=== PATIENT | female | born 1985 | race Caucasian/White ===

== ENCOUNTER 2020-05-30 12:53 | Inpatient (IN) | payer MEDICAID ==
[2020-05-30] MEDS ORDERED: Ondansetron 4 MG/2 ML SDV IVPUSH PRN (13:08)
[2020-05-30] MEDS ORDERED: Lidocaine 1% 50 ML MDV INJECT ONE (13:08)
[2020-05-30] MEDS ORDERED: Sodium Chloride 0.9% 10 ML Syringe FLUSH PRN (13:08)
[2020-05-30] MEDS ORDERED: Calcium Carbonate 500 MG Tab.Chew PO PRN (13:08)
[2020-05-30] MEDS ORDERED: Nalbuphine 10 MG/1 ML Vial IVPUSH PRN (13:08)
[2020-05-30] MEDS ORDERED: Oxytocin/Lactated Ringers 10 UNIT/1,000 ML BAG IV SCH ×2 (13:15)
[2020-05-30] MEDS ORDERED: Ampicillin 2 GM in Sodium Chloride 0.9% 100 ML IV ONE (13:30)
[2020-05-30] MEDS: Lactated Ringers 1,000 ML IV SCH ×2 (14:10→21:52)
[2020-05-30] MEDS: Ampicillin 1 GM in Sodium Chloride 0.9% 100 ML IV SCH ×2 (17:29→21:51)
--- NOTE | 2020-05-30 18:30 | PCM.LDHP ---
L&D History of Present Illness - General Date of Service: 05/30/20 Admit Problem/Dx: Patient Status Order with Admit Dx/Problem 05/30/20 13:09 Patient Status [ADT] Routine Admission Diagnosis/Problem Admission Diagnosis/Problem Term 05/30/20 18:21 Era is a 35-year-old 7 para 5-0-1-5 female who was admitted at midday on 05/30/2020 a 9-6/7 weeks gestational age with an RUT of 05/31/2020 for induction of labor. Source of Information: Patient History Limitations: Reports: No Limitations - History of Present Illness Introduction:: Era is a 35-year-old 7 para 5-0-1-5 female who was admitted at midday on 05/30/2020 a 9-6/7 weeks gestational age with an RUT of 05/31/2020 for induction of labor. The procedure, risk, benefits, alternatives of care including allowing for natural onset of labor are all discussed with her and her Francisco. They appear to understand and wish to proceed. [employer]E [employer]INE [employer] history: Era is a 7 para 5-0-1-5. Her due date of 05/31/2020 is set by an LMP which is relatively certain and started on 08/25/2019. Her last menstrual period was definite. She is not using any control at the time of conception. Cycles come q. 30 days. They last approximately 5 to 7 days. She has no history of abnormal Pap smears or STIs. Previous obstetric history includes 5 vaginal deliveries ranging in the 8 pound 8 ounce range to the 9 pound 4 ounce range. 2 of these deliveries were home deliveries and 3 of them were at [facility]. course: Patient was initially seen at 12 weeks gestational age. She was seen on a reasonably regular basis. Weight gain was from 205 to 220 pounds for 15 pound increase. Her vital signs remained stable throughout the and her fundal height growth was appropriate. She is group B strep positive and is a candidate for ampicillin in labor and delivery. Patient is interested in definitive therapy to achieve hysterectomy after this delivery. She plans to breast-feed. Her MMR indicates she is rubella immune. Laboratory testing shows blood to be all positive. First labs show an antibody screen which is negative. Hemoglobin at first annual visit was 13.6 g/dL and platelets were 297,000. She is rubella immune. RPR is nonreactive. Urine culture showed group B strep presence. Hepatitis B surface antigen was negative. HIV assay was negative. Chlamydia and gonorrhea tests were both negative. Her 1 hour GTT was normal at 127. Follow-up hemoglobin on 04/13/2020 was 12.6 and platelets were 215,000. Group B strep was positive on urine culture and was not repeated at the end of the . Allergies: Minocycline HCL tabs which cause itching Medications: 1. Vitamin D tabs 2. Vitamin C tabs 3. vitamins daily 4. B complex oral tablets 5. Calcium, zinc, magnesium and vitamin D tablets daily Past medical history: 1. x5 2. Spontaneous miscarriage x1 Past surgical history: 1. Tonsillectomy 2. [place] teeth extraction Family history: Mother is alive, is diabetic, has neuropathy, has Graves' disease. Father is alive but has high blood pressure. 1 brother 1 sister alive and well. Paternal grandfather secondary to malignant melanoma. Paternal grandmother is secondary to CHF.. Maternal grandmother is alive and diabetic. Maternal grandfather is alive. Health history is unknown. 1 sister has had a miscarriage. Social history: Patient is . She lives in [place], [place]. She is a homemaker. Her name is Francisco. She does not use any significant muscle alcohol, drugs or tobacco. Review of systems: In general patient has no complaints. Baby has been active. Occasional contractions are noted. Skin: Negative Lungs: No infectious symptoms or shortness of breath Cardiovascular: No chest pain or exercise intolerance Breasts: No lumps, changes in size, pain, dimpling, discharge or axillary or supraclavicular concerns. GI: Negative : Changes associated noted. Musculoskeletal: Negative Neurological: Negative Physical exam: In general the patient is well-developed, well-nourished, pleasant female of stated age in no acute distress. Last evaluation clinic blood pressure 108/68. Weight was 220 pounds with a pregravid weight of 205 pounds. Her heart rate was 136 bpm. Fundal height was 39 cm. Skin is warm dry without lesions. HEENT, neck and back within normal limits. Lungs are clear with good breath sounds in all lung santiago. Cardiovascular exam shows regular and rhythm without murmurs. Breast exam at first annual visit was within normal limits. Is not repeated at this time. Abdomen is is gravid with last fundal height clinic at 39 cm with baby in vertex presentation.. Genital per digital exam on last evaluation clinic shows cervix to be 2 cm, 40% effaced, mid position, soft, -3 station.. Extremities and neurological exam are grossly within normal limits. - Related Data Allergies/Adverse Reactions: Allergies Allergy/AdvReac Type Severity Reaction Status Date / Time minocycline Allergy Itching Verified 02/19/18 12:50 Past Medical History [employer]E [employer] History: Reports: - Past Surgical History HEENT Surgical History: Reports: Oral Surgery, Tonsillectomy Social & Family History - Family History Family Medical History: No Pertinent Family History Oncologic: Reports: Bone Other Oncologic Family History: son dx with cancer - Tobacco Use Tobacco Use Status *Q: Never Tobacco User Second Hand Smoke Exposure: No - Recreational Drug Use Recreational Drug Use: No H&P Review of Systems - Review of Systems: Review Of Systems: See Below L&D Exam - Exam Exam: See Below - Vital Signs Vital Signs: Last Vital Signs Temp 36.9 C 05/30/20 13:08 Pulse 79 05/30/20 16:02 Resp 14 05/30/20 13:08 BP 116/74 05/30/20 16:02 Pulse Ox 98 05/30/20 13:08 Weight: 102.058 kg - Patient Data Lab Results Last 24 hrs: Laboratory Results - last 24 hr 05/30/20 05/30/20 Range/Units 13:15 13:40 WBC 6.85 (3.98-10.04) K/mm3 RBC 4.16 (3.98-5.22) M/mm3 Hgb 12.4 (11.2-15.7) gm/dl Hct 36.4 (34.1-44.9) % MCV 87.5 (79.4-94.8) fl MCH 29.8 (25.6-32.2) pg MCHC 34.1 (32.2-35.5) g/dl RDW Std Deviation 44.0 (36.4-46.3) fL Plt Count 195 (182-369) K/mm3 MPV 10.3 (9.4-12.3) fl Neut % (Auto) 63.2 (34.0-71.1) % Lymph % (Auto) 29.2 (19.3-51.7) % [place] % (Auto) 6.9 (4.7-12.5) % Eos % (Auto) 0.3 L (0.7-5.8) Baso % (Auto) 0.3 (0.1-1.2) % Neut # (Auto) 4.33 (1.56-6.13) K/mm3 Lymph # (Auto) 2.00 (1.18-3.74) K/mm3 [place] # (Auto) 0.47 H (0.24-0.36) K/mm3 Eos # (Auto) 0.02 L (0.04-0.36) K/mm3 Baso # (Auto) 0.02 (0.01-0.08) K/mm3 SARS-CoV-2 RNA (REECE) Negative (NEGATIVE) Result Diagrams: 05/30/20 13:40 Problem List Initiated/Reviewed/Updated: Yes Orders Last 24hrs: Active Orders 24 hr Category Date Time Status Patient Status [ADT] Routine ADT 05/30/20 13:09 Active Activity as Tolerated [RC] PFP Care 05/30/20 13:08 Active Antiembolic Devices [RC] PER UNIT ROUTINE Care 05/30/20 13:12 Active Communication Order [RC] ASDIRECTED Care 05/30/20 13:08 Active Communication Order [RC] ASDIRECTED Care 05/30/20 13:08 Active Communication Order [RC] ASDIRECTED Care 05/30/20 13:08 Active Communication Order [RC] ASDIRECTED Care 05/30/20 13:08 Active Notify Provider [RC] ASDIRECTED Care 05/30/20 13:08 Active Notify Provider [RC] PFP Care 05/30/20 13:08 Active Notify Provider [RC] PRN Care 05/30/20 13:08 Active Urinary Catheter Assessment [RC] ASDIRECTED Care 05/30/20 13:08 Active Vital Signs [RC] 09,15,21,03 Care 05/30/20 13:08 Active Regular Diet [DIET] Diet 05/30/20 Lunch Active BLOOD BANK HOLD SPECIMEN [BBK] Stat Lab 05/30/20 13:08 Ordered RAPID PLASMA REAGIN,RPR [CHEM] Stat Lab 05/30/20 13:40 Received Ampicillin 1 gm Med 05/30/20 17:30 Active Sodium Chloride 0.9% [Normal Saline] 100 ml IV Q4H Calcium Carbonate [Tums] Med 05/30/20 13:08 Active 1,000 mg PO Q2H PRN Lactated Ringers [Ringers, Lactated] 1,000 ml Med 05/30/20 13:15 Active IV ASDIRECTED Nalbuphine [Nubain] Med 05/30/20 13:08 Active 10 mg IVPUSH Q2H PRN Ondansetron [Zofran] Med 05/30/20 13:08 Active 4 mg IVPUSH Q4H PRN Oxytocin/Lactated Ringers [Pitocin in LR 10 Units/1,000 Med 05/30/20 13:15 Active ML] 10 unit in 1,000 ml IV .CONTINUOUS Oxytocin/Lactated Ringers [Pitocin in LR 10 Units/1,000 Med 05/30/20 13:15 Active ML] 10 unit in 1,000 ml IV TITRATE Sodium Chloride 0.9% [Saline Flush] Med 05/30/20 13:08 Active 10 ml FLUSH ASDIRECTED PRN Electronic Heart Tones Ext w TOCO [WOMSER] Oth 05/30/20 13:08 Ordered Routine Electronic Heart Tones Internal [WOMSER] Per Unit Oth 05/30/20 13:08 Ordered Routine Peripheral IV Insertion Adult [OM.PC] Routine Oth 05/30/20 13:08 Ordered Sequential Compression Device [OM.PC] Routine Oth 05/30/20 13:08 Ordered Resuscitation Status Routine Resus Stat 05/30/20 13:08 Ordered Medication Orders Calcium Carbonate/Glycine (Tums) 1,000 mg PO Q2H PRN PRN Reason: Indigestion Lactated Ringer's (Ringers, Lactated) 1,000 mls @ 100 mls/hr IV ASDIRECTED JULIA Last Admin: 05/30/20 14:10 Dose: 100 mls/hr Documented by: ALEXI Oxytocin/Lactated Ringer's (Pitocin In Lr 10 Units/1,000 Ml) 10 unit in 1,000 mls @ 12 mls/hr IV TITRATE JULIA; Protocol Last Titration: 05/30/20 17:33 Dose: 16 munits/min, 96 mls/hr Documented by: KATHIABMJAMEEL Titration: 05/30/20 17:12 Dose: 14 munits/min, 84 mls/hr Documented by: KATHIABMJAMEEL Titration: 05/30/20 16:44 Dose: 12 munits/min, 72 mls/hr Documented by: CHARLYLBMJAMEEL Titration: 05/30/20 16:16 Dose: 10 munits/min, 60 mls/hr Documented by: KATHIABMJAMEEL Titration: 05/30/20 16:04 Dose: 8 munits/min, 48 mls/hr Documented by: KATHIABMJAMEEL Titration: 05/30/20 15:31 Dose: 6 munits/min, 36 mls/hr Documented by: KATHIABMJAMEEL Titration: 05/30/20 15:11 Dose: 4 munits/min, 24 mls/hr Documented by: Admin: 05/30/20 14:52 Dose: 2 munits/min, 12 mls/hr Documented by: ALEXI Oxytocin/Lactated Ringer's (Pitocin In Lr 10 Units/1,000 Ml) 10 unit in 1,000 mls @ 500 mls/hr IV .CONTINUOUS JULIA Ampicillin Sodium 1 gm/ Sodium (Chloride) 100 mls @ 200 mls/hr IV Q4H JULIA Last Admin: 05/30/20 17:29 Dose: 200 mls/hr Documented by: ALEXI Nalbuphine HCl (Nubain) 10 mg IVPUSH Q2H PRN PRN Reason: Pain Ondansetron HCl (Zofran) 4 mg IVPUSH Q4H PRN PRN Reason: Nausea/Vomiting Sodium Chloride (Saline Flush) 10 ml FLUSH ASDIRECTED PRN PRN Reason: Keep Vein Open Assessment/Plan Comment:: 1Ricki Girard is a 35-year-old 7 para 5-0-1-5 female who was admitted at midday on 05/30/2020 a 9-6/7 weeks gestational age with an RUT of 05/31/2020 for induction of labor. 2. Group B strep positive status 3. Patient is open to epidural but would like to try natural labor 4. Patient plans to breast-feed 5. Patient is rubella immune. 6. Patient is desiring minimal intervention. She has had 2 home deliveries and has somewhat reluctantly agreed to deliver in the hospital. Plan: 1. Pitocin induction to be followed by AROM augmentation. Anticipate normal spontaneous vaginal delivery 2. Group B strep prophylaxis per protocol with ampicillin 3. Patient understands that epidurals available for her as well as other pain control modalities if she desires. 4. Routine labor care 5. Admission labs consist of Covid19 testing, CBC, RPR. 6. Encourage/support breast-feeding plan
[2020-05-30] MEDS ORDERED: Oxytocin/Lactated Ringers 20 UNIT/1,000 ML BAG IV SCH (20:45)
--- NOTE | 2020-05-31 00:02 | PCM.SN.2 ---
- Free Text/Narrative Note: Era is a 35-year-old 7 para 5-0-1-5 female who was admitted at midday on 05/30/2020 a 9-6/7 weeks gestational age with an RUT of 05/31/2020 for induction of labor. Labor was initiated with Pitocin as baby's head was at a -3 station and not well engaged with the cervix. After several hours of Pitocin artificial rupture membranes was undertaken with resultant clear amniotic fluid. Patient underwent natural labor and no epidural or other analgesia was used. At 2327 hrs. on 05/30/2020 the patient became complete and became very pushy. With a single contraction she delivered a viable, nunez, male infant with Apgars of 8 and 9, a weight of 3690 g (8 pounds 9.2 ounces), a length of 21 inches in a direct occiput anterior position. The baby was placed on mom's abdomen, nose and mouth were bulb suction the baby was dried. Pitocin solution rate was increased to 500 cc/h per protocol to facilitate increase in uterine tone and decrease likelihood of bleeding. Umbilical cord is allowed to pulsate for approximately 2 to 3 minutes. It was then clamped. Patient desired cord blood banking to be done. She had a kit present. Following instructions within the kit cord blood was obtained without problems. The cord was prepped with the prep swab prior to obtaining cord blood. Patient's instructions from the company for their specific sample was that cord tissue sample was not necessary. Therefore cord tissue sample was not obtained. Paternal blood had already been drawn by the lab for the cat. The cat was packed and given to the family by nurse Sawyer. The placenta delivered in a [place] presentation, appeared intact and complete and was discarded per patient desire. There were 3 vessels in the umbilical cord. Cord blood for labor and delivery use was not obtained as no further blood could be drawn from the cord after the cord blood banking sample was obtained. The perineum was intact and no suturing was required. Patient plans to breast- feed. Estimated blood loss was 200 cc. Condition: Good
[2020-05-31] MEDS ORDERED: Docusate Sodium 100 MG Cap PO PRN (00:09)
[2020-05-31] MEDS ORDERED: Benzocaine/Menthol 20%-0.5% Spray 56 GM Canister TOP PRN (00:09)
[2020-05-31] MEDS ORDERED: Witch Hazel Medicated Pads 40/Jar TOP PRN (00:09)
[2020-05-31] MEDS ORDERED: Ibuprofen 600 MG Tab PO PRN (00:09)
[2020-05-31] MEDS ORDERED: Acetaminophen 325 MG Tab PO PRN (00:09)
--- NOTE | 2020-05-31 07:10 | PCM.PNPP ---
- General Info Date of Service: 05/31/20 Functional Status: Reports: Pain Controlled - Review of Systems General: Reports: No Symptoms HEENT: Reports: No Symptoms Pulmonary: Reports: No Symptoms Cardiovascular: Reports: No Symptoms Gastrointestinal: Reports: No Symptoms Genitourinary: Reports: No Symptoms Musculoskeletal: Reports: No Symptoms Skin: Reports: No Symptoms Neurological: Reports: No Symptoms Psychiatric: Reports: No Symptoms - General Info Date of Service: 05/31/20 - Patient Data Vital Signs - Most Recent: Last Vital Signs Temp 37.0 C 05/31/20 05:20 Pulse 77 05/31/20 05:20 Resp 16 05/31/20 05:20 BP 107/64 05/31/20 05:20 Pulse Ox 95 05/31/20 05:20 Weight - Most Recent: 102.058 kg I&O - Last 24 Hours: Intake & Output 05/30/20 05/31/20 05/31/20 22:59 06:59 14:59 Intake Total 0 Balance 0 Lab Results - Last 24 Hours: Laboratory Results - last 24 hr 05/30/20 05/30/20 05/30/20 Range/Units 13:15 13:40 13:40 WBC 6.85 (3.98-10.04) K/mm3 RBC 4.16 (3.98-5.22) M/mm3 Hgb 12.4 (11.2-15.7) gm/dl Hct 36.4 (34.1-44.9) % MCV 87.5 (79.4-94.8) fl MCH 29.8 (25.6-32.2) pg MCHC 34.1 (32.2-35.5) g/dl RDW Std Deviation 44.0 (36.4-46.3) fL Plt Count 195 (182-369) K/mm3 MPV 10.3 (9.4-12.3) fl Neut % (Auto) 63.2 (34.0-71.1) % Lymph % (Auto) 29.2 (19.3-51.7) % [place] % (Auto) 6.9 (4.7-12.5) % Eos % (Auto) 0.3 L (0.7-5.8) Baso % (Auto) 0.3 (0.1-1.2) % Neut # (Auto) 4.33 (1.56-6.13) K/mm3 Lymph # (Auto) 2.00 (1.18-3.74) K/mm3 [place] # (Auto) 0.47 H (0.24-0.36) K/mm3 Eos # (Auto) 0.02 L (0.04-0.36) K/mm3 Baso # (Auto) 0.02 (0.01-0.08) K/mm3 RPR Non-reactive (NONREACTIVE) SARS-CoV-2 RNA (REECE) Negative (NEGATIVE) Med Orders - Current: Current Medications Acetaminophen (Tylenol) 650 mg PO Q4H PRN PRN Reason: mild pain or fever Benzocaine/Menthol (Dermoplast Pain Relief Coats) 0 gm TOP ASDIRECTED PRN PRN Reason: Perineal Comfort Measure Last Admin: 05/31/20 00:27 Dose: 1 can Documented by: Docusate Sodium (Colace) 100 mg PO BID PRN PRN Reason: Constipation Ibuprofen (Motrin) 600 mg PO Q4H PRN PRN Reason: Mild pain or fever Last Admin: 05/31/20 00:26 Dose: 600 mg Documented by: Prenat Multivit/Senior Sales Administrator/Iron/Folic Ac ( Plus Iron) 1 each PO DAILY [facility] Laureano Loera (Tucks) 1 pad TOP ASDIRECTED PRN PRN Reason: Perineal Comfort Measure Last Admin: 05/31/20 00:27 Dose: 1 tub Documented by: Discontinued Medications Calcium Carbonate/Glycine (Tums) 1,000 mg PO Q2H PRN PRN Reason: Indigestion Lactated Ringer's (Ringers, Lactated) 1,000 mls @ 100 mls/hr IV ASDIRECTED JULIA Last Admin: 05/30/20 21:52 Dose: 100 mls/hr Documented by: Oxytocin/Lactated Ringer's (Pitocin In Lr 10 Units/1,000 Ml) 10 unit in 1,000 mls @ 12 mls/hr IV TITRATE JULIA; Protocol Last Titration: 05/30/20 19:35 Dose: 20 munits/min, 120 mls/hr Documented by: Oxytocin/Lactated Ringer's (Pitocin In Lr 10 Units/1,000 Ml) 10 unit in 1,000 mls @ 500 mls/hr IV .CONTINUOUS JULIA Ampicillin Sodium 2 gm/ Sodium (Chloride) 100 mls @ 200 mls/hr IV ONETIME ONE Stop: 05/30/20 13:59 Last Admin: 05/30/20 14:13 Dose: 200 mls/hr Documented by: Ampicillin Sodium 1 gm/ Sodium (Chloride) 100 mls @ 200 mls/hr IV Q4H JULIA Last Admin: 05/30/20 21:51 Dose: 200 mls/hr Documented by: Oxytocin/Lactated Ringer's (Pitocin In Lr 20 Units/1,000 Ml) 20 unit in 1,000 mls @ 66 mls/hr IV TITRATE JULIA; Protocol Last Admin: 05/30/20 20:48 Dose: 66 mls/hr Documented by: Lidocaine HCl (Xylocaine 1%) 20 ml INJECT ONETIME ONE Stop: 05/30/20 13:09 Last Admin: 05/31/20 06:56 Dose: Not Given Documented by: Nalbuphine HCl (Nubain) 10 mg IVPUSH Q2H PRN PRN Reason: Pain Ondansetron HCl (Zofran) 4 mg IVPUSH Q4H PRN PRN Reason: Nausea/Vomiting Sodium Chloride (Saline Flush) 10 ml FLUSH ASDIRECTED PRN PRN Reason: Keep Vein Open - Infant Interaction Support Person: - Recovery Exam Fundal Tone: Firm Fundal Level: 1 Fingerbreadths Below Umbilicus Fundal Placement: Midline Lochia Amount: Small Lochia Color: Rubra/Red - Exam General: Alert, Oriented HEENT: Pupils Equal Neck: Supple Lungs: Clear to Auscultation, Normal Respiratory Effort Cardiovascular: Regular Rate, Regular Rhythm GI/Abdominal Exam: Normal Bowel Sounds, Soft, Non-Tender, No Organomegaly, No Distention, No Abnormal Bruit, No Mass, Pelvis Stable Extremities: Normal Inspection, Normal Range of Motion, Non-Tender, No Pedal Edema, Normal Capillary Refill Skin: Warm, Dry, Intact Wound/Incisions: Healing Well Neurological: No New Focal Deficit Psy/Mental Status: Alert, Normal Affect, Normal Mood - Problem List Review Problem List Initiated/Reviewed/Updated: Yes - Assessment Assessment:: PPD1 Doing well. - Plan Plan:: Home tomorrow
[2020-05-31] MEDS ORDERED: Prenatal Multivitamin with Calcium/Folic Acid/Iron Tab PO SCH (09:00)
--- NOTE | 2020-05-31 17:16 | PCM.DCSUM1 ---
Discharge Summary - Hospital Course Diagnosis: Stroke: No - Discharge Data Discharge Date: 05/31/20 Discharge Disposition: Home, Self-Care 01 Condition: Good - Referral to Home Health Primary Care Physician: Nathan Mendoza MD - Patient Summary/Data Hospital Course: Era is a 35-year-old 7 para 5-0-1-5 female who was admitted at [facility] on 05/30/2020 a 9-6/7 weeks gestational age with an RUT of 05/31/2020 for induction of labor. Labor was initiated with Pitocin as baby's head was at a -3 station and not well engaged with the cervix. After several hours of Pitocin artificial rupture membranes was undertaken with resultant clear amniotic fluid. Patient underwent natural labor and no epidural or other analgesia was used. At 2327 hrs. on 05/30/2020 the patient became complete and became very pushy. With a single contraction she delivered a viable, nunez, male infant with Apgars of 8 and 9, a weight of 3690 g (8 pounds 9.2 ounces), a length of 21 inches in a direct occiput anterior position. The baby was placed on mom's abdomen, nose and mouth were bulb suction the baby was dried. Pitocin solution rate was increased to 500 cc/h per protocol to facilitate increase in uterine tone and decrease likelihood of bleeding. Umbilical cord is allowed to pulsate for approximately 2 to 3 minutes. It was then clamped. Patient desired cord blood banking to be done. She had a kit present. Following instructions within the kit cord blood was obtained without problems. The cord was prepped with the prep swab prior to obtaining cord blood. Patient's instructions from the company for their specific sample was that cord tissue sample was not necessary. Therefore cord tissue sample was not obtained. Paternal blood had already been drawn by the lab for the cat. The cat was packed and given to the family by nurse Sawyer. The placenta delivered in a [place] presentation, appeared intact and complete and was discarded per patient desire. There were 3 vessels in the umbilical cord. Cord blood for labor and delivery use was not obtained as no further blood could be drawn from the cord after the cord blood banking sample was obtained. The perineum was intact and no suturing was required. Patient plans to breast- feed. Estimated blood loss was 200 cc. Condition: Good - Patient Instructions Diet: Usual Diet as Tolerated Activity: No Strenuous Activities Activity, Other: pelvic rest Driving: May Drive Today Showering/Bathing: May Shower Notify Provider of: Fever, Increased Pain, Swelling and Redness, Drainage, Nausea and/or Vomiting - Discharge Plan *PRESCRIPTION DRUG MONITORING PROGRAM REVIEWED*: No *COPY OF PRESCRIPTION DRUG MONITORING REPORT IN PATIENT NIKKI: No Referrals: Nathan Mendoza MD [Primary Care Provider] - (2 weeks) - Discharge Summary/Plan Comment DC Time >30 min.: No - General Info Date of Service: 05/31/20 Functional Status: Reports: Pain Controlled - Review of Systems General: Reports: No Symptoms HEENT: Reports: No Symptoms Pulmonary: Reports: No Symptoms Cardiovascular: Reports: No Symptoms Gastrointestinal: Reports: No Symptoms Genitourinary: Reports: No Symptoms Musculoskeletal: Reports: No Symptoms Skin: Reports: No Symptoms Neurological: Reports: No Symptoms Psychiatric: Reports: No Symptoms - Patient Data Vitals - Most Recent: Last Vital Signs Temp 36.5 C 05/31/20 07:53 Pulse 70 05/31/20 07:53 Resp 18 05/31/20 07:53 BP 114/76 05/31/20 07:53 Pulse Ox 97 05/31/20 07:53 Weight - Most Recent: 102.058 kg I&O - Last 24 hours: Intake & Output 05/31/20 05/31/20 05/31/20 06:59 14:59 22:59 Intake Total 240 Balance 240 Lab Results - Last 24 hrs: Laboratory Results - last 24 hr 05/30/20 Range/Units 13:40 RPR Non-reactive (NONREACTIVE) Med Orders - Current: Current Medications Acetaminophen (Tylenol) 650 mg PO Q4H PRN PRN Reason: mild pain or fever Benzocaine/Menthol (Dermoplast Pain Relief [place]) 0 gm TOP ASDIRECTED PRN PRN Reason: Perineal Comfort Measure Last Admin: 05/31/20 00:27 Dose: 1 can Documented by: Docusate Sodium (Colace) 100 mg PO BID PRN PRN Reason: Constipation Ibuprofen (Motrin) 600 mg PO Q4H PRN PRN Reason: Mild pain or fever Last Admin: 05/31/20 00:26 Dose: 600 mg Documented by: Prenat Multivit/[place]/Iron/Folic Ac ( Plus Iron) 1 each PO DAILY [facility] Laureano [place] (Tucks) 1 pad TOP ASDIRECTED PRN PRN Reason: Perineal Comfort Measure Last Admin: 05/31/20 00:27 Dose: 1 tub Documented by: Discontinued Medications Calcium Carbonate/Glycine (Tums) 1,000 mg PO Q2H PRN PRN Reason: Indigestion Lactated Ringer's (Ringers, Lactated) 1,000 mls @ 100 mls/hr IV ASDIRECTED JULIA Last Admin: 05/30/20 21:52 Dose: 100 mls/hr Documented by: Oxytocin/Lactated Ringer's (Pitocin In Lr 10 Units/1,000 Ml) 10 unit in 1,000 mls @ 12 mls/hr IV TITRATE JULIA; Protocol Last Titration: 05/30/20 19:35 Dose: 20 munits/min, 120 mls/hr Documented by: Oxytocin/Lactated Ringer's (Pitocin In Lr 10 Units/1,000 Ml) 10 unit in 1,000 mls @ 500 mls/hr IV .CONTINUOUS JULIA Ampicillin Sodium 2 gm/ Sodium (Chloride) 100 mls @ 200 mls/hr IV ONETIME ONE Stop: 05/30/20 13:59 Last Admin: 05/30/20 14:13 Dose: 200 mls/hr Documented by: Ampicillin Sodium 1 gm/ Sodium (Chloride) 100 mls @ 200 mls/hr IV Q4H JULIA Last Admin: 05/30/20 21:51 Dose: 200 mls/hr Documented by: Oxytocin/Lactated Ringer's (Pitocin In Lr 20 Units/1,000 Ml) 20 unit in 1,000 mls @ 66 mls/hr IV TITRATE JULIA; Protocol Last Admin: 05/30/20 20:48 Dose: 66 mls/hr Documented by: Lidocaine HCl (Xylocaine 1%) 20 ml INJECT ONETIME ONE Stop: 05/30/20 13:09 Last Admin: 05/31/20 06:56 Dose: Not Given Documented by: Nalbuphine HCl (Nubain) 10 mg IVPUSH Q2H PRN PRN Reason: Pain Ondansetron HCl (Zofran) 4 mg IVPUSH Q4H PRN PRN Reason: Nausea/Vomiting Sodium Chloride (Saline Flush) 10 ml FLUSH ASDIRECTED PRN PRN Reason: Keep Vein Open - Exam General: Reports: Alert, Oriented HEENT: Reports: Pupils Equal, Pupils Reactive, EOMI, Mucous Membr. Moist/[place] Neck: Reports: Supple Lungs: Reports: Clear to Auscultation, Normal Respiratory Effort Cardiovascular: Reports: Regular Rate, Regular Rhythm GI/Abdominal Exam: Normal Bowel Sounds, Soft, Non-Tender, No Organomegaly, No Distention, No Abnormal Bruit, No Mass, Pelvis Stable Rectal (Female) Exam: Normal Exam Back Exam: Reports: Normal Inspection, Full Range of Motion Extremities: Normal Inspection, Normal Range of Motion, Non-Tender, No Pedal Edema, Normal Capillary Refill Skin: Reports: Warm, Dry, Intact Wound/Incisions: Reports: Healing Well Neurological: Reports: No New Focal Deficit Psy/Mental Status: Reports: Alert, Normal Affect, Normal Mood
== END 2020-05-31 23:48 | disposition home or self-care (01) | DRG 807 ==
LOC: JD.OB 12:53 → OBSVTOIN 23:27 → JD.OB 05-31 11:01
PROVIDERS: ADMIT Obstetrics & Gynecology; ATTEND Obstetrics & Gynecology
PROC: 10E0XZZ Delivery of Products of Conception, External Approach (ICD-10-PCS; principal; 2020-05-30)
PROC: 10907ZC Drainage of Amniotic Fluid, Therapeutic from Products of Conception, Via Natural or Artificial Opening (ICD-10-PCS; 2020-05-30)
DX: O99.824 Streptococcus B carrier state complicating childbirth (principal); Z37.0 Single live birth; Z3A.39 39 weeks gestation of pregnancy; Z20.822 Contact with and (suspected) exposure to COVID-19
CPT/HCPCS: 36415; 59025; 59409; 85025; 86592; A9270-GY; J0290; J2590; J7120; U0002

== ENCOUNTER 2022-02-11 08:44 | Day surgery (SDC) | payer BC, MEDICAID ==
[2022-02-11] MEDS: Lactated Ringers 1,000 ML IV SCH ×2 (09:00→13:05)
[2022-02-11] MEDS ORDERED: Ondansetron 4 MG/2 ML SDV ONE (09:56)
[2022-02-11] MEDS ORDERED: fentaNYL 100 MCG/2 ML SDV ONE (09:56)
[2022-02-11] MEDS ORDERED: Propofol 200 MG/20 ML SDV ONE ×2 (09:56→12:06)
[2022-02-11] MEDS ORDERED: Midazolam 1 MG/ML 2 ML SDV ONE (09:56)
[2022-02-11] MEDS ORDERED: Lidocaine 1% 2 ML ONE (09:57)
[2022-02-11] MEDS ORDERED: Lidocaine 1% with EPINEPHrine 1:100,000 20 ML MDV ONE (10:25)
[2022-02-11] MEDS ORDERED: Bupivacaine 0.5% 30 ML SDV ONE (10:25)
[2022-02-11] MEDS ORDERED: Lidocaine 1%/Sod Bicarbonate in NS 8.4% 1 ML Syringe IDERM PRN (11:23)
[2022-02-11] MEDS ORDERED: Dexmedetomidine 200 MCG/2 ML SDV ONE (12:16)
[2022-02-11] MEDS ORDERED: Lactated Ringers 0 ML ONE (12:20)
[2022-02-11] MEDS ORDERED: ceFAZolin 2 GM Vial ONE (12:21)
[2022-02-11] MEDS ORDERED: Sodium Chloride 0.9% 10 ML Syringe FLUSH SCH (21:00)
== END 2022-02-11 14:12 | disposition home or self-care (01) ==
LOC: JD.SDS 08:44
PROVIDERS: ATTEND Surgery
DX: L02.412 Cutaneous abscess of left axilla (principal); L72.3 Sebaceous cyst; Z79.899 Other long term (current) drug therapy; Z98.890 Other specified postprocedural states; Z88.1 Allergy status to other antibiotic agents
CPT/HCPCS: 11402; 12031; J0690; J2250; J2405; J2704; J3010; J3490; J7120; 00400